=== PATIENT | female | born 1950 | race Two or more races ===

== ENCOUNTER 2016-06-03 12:58 | Emergency (ER) | payer OTHER ==
[~2016-06-03] VITALS: Ht 162.6 cm; Wt 86.2 kg
--- NOTE | 2016-06-03 13:10 | Emergency Room Report ---
History of Present Illness General Chief Complaint: Dizziness Source: Patient, EMS (SANCHEZ GARIBAY M.D.) Present Illness HPI 66 YOM BIBEMS from home for "dizziness" and "Weakness." Elevated glucose at home, ~300. Patient just moaning with eyes closed, not providing additional info. History of DM, but unknown other medical problems. No family members bedside. No other medical info from patient. (SANCHEZ GARIBAY M.D.) Allergies: Coded Allergies: No Known Allergies (Unverified , 06/03/16) Patient History Past Medical History: DM Past Surgical History: unable to obtain Pertinent Family History: unable to obtain Social History: Denies: alcohol use, drug use, smoking Now: No Immunizations: UTD Reviewed Nursing Documentation: PMH: Agreed, PSxH: Agreed (SANCHEZ GARIBAY M.D.) Nursing Documentation-PMH Hx Cardiac Problems: No Hx Hypertension: Yes Hx Pacemaker: No Hx Asthma: No Hx COPD: No Hx Diabetes: Yes Hx Cancer: No Hx Gastrointestinal Problems: No Hx Dialysis: No History Of Psychiatric Problem: No Hx Neurological Problems: No Hx Cerebrovascular Accident: No Hx Seizures: No (SANCHEZ GARIBAY M.D.) Review of Systems All Other Systems: limited - AMS (SANCHEZ GARIBAY M.D.) Physical Exam Vital Signs Date Time Temp Pulse Resp B/P Pulse Ox O2 Delivery O2 Flow Rate FiO2 06/03/16 12:54 98.1 96 16 160/100 99 Room Air Sp02 EP Interpretation: reviewed, abnormal General Appearance: normal inspection, alert, non-toxic, mild distress, other - eyes closed, moaning Head: normocephalic, atraumatic Eyes: bilateral eye EOMI, bilateral eye PERRL ENT: normal ENT inspection, hearing grossly normal, normal voice Neck: normal inspection, full range of motion, supple, no bony tend Respiratory: normal inspection, lungs clear, normal breath sounds, no respiratory distress, no retraction, no wheezing Cardiovascular #1: regular rate, rhythm, no edema Gastrointestinal: normal inspection, normal bowel sounds, non tender, soft, no guarding, no hernia Genitourinary: no CVA tenderness Musculoskeletal: normal inspection, back normal, normal range of motion, Jerry' s Sign negative Neurologic: normal inspection, alert, oriented x3, responsive, medical affairs leader III-XII nml as tested, speech normal Psychiatric: normal inspection, judgement/insight normal, mood/affect normal Skin: normal inspection, normal color, no rash (SANCHEZ GARIBAY M.D.) Procedures Critical Care Time Critical Care Time CC time 35 minutes Care for a 66 YO M with known DM presents with AMS Elevated BP DDx includes CVA, SAH, ACS, infection, metabolic abnormality, toxic ingestion, polysubstance abuse Patient is disoriented, no obvious sign of trauma. Comprehensive physical exam completed, atraumatic. Unreliable history from patient. Labs include toxicology and chem panel, CT head, EKG 12 lead and constant cardiac rhythm strip monitoring, IV established. Airway adequately maintained by patient upon arrival. EKG reveals NSR without QRS abnormalities. Physician spent 35 minutes of direct critical care time monitoring patient's respiratory, cardiac and neurological status, reassessment, review of imaging, labs and discussion with attending hospitalist. Does not include procedures (SANCHEZ GARIBAY M.D.) Medical Decision Making Medicare Attestation I Sanchez Garibay MD hereby attest that the medical record entry for date of service, 02/18/16 accurately reflects signatures/notations that I made in my capacity as MD when I treated/diagnosed the above listed Medicare beneficiary. I attest that this information is true, accurate and complete to the best of my knowledge. I understand that any falsification, omission, or concealment of material fact may subject me to administrative, civil, or criminal liability. This patient warrants hospital admission for extreme of age and has a condition that cannot be treated as outpatient. (SANCHEZ GARIBAY M.D.) Diagnostic Impression: Primary Impression: Altered mental status Qualified Codes: R41.82 - Altered mental status, unspecified Additional Impression: Dizziness ER Course Elevated BP. Afebrile. DDx hyperglycemia/DKA, SAH, metabolic enceph, ACS PLAN CT head Labs, ABG, IVF, insulin Likely admission Endorsed to Dr Cloud at 2pm to followup CT head imaging, labs and determine appropriate management/disposition (SANCHEZ GARIBAY M.D.) ER Course The patient was discussed with Dr. Azar Lamb from patient's HMO who agreed to accept patient in transfer to [facility]. The patient was given aspirin do to a recent CVA. Labs Test 06/03/16 13:20 06/03/16 13:30 06/03/16 13:40 06/03/16 13:49 White Blood Count 8.8 K/UL (4.8-10.8) Red Blood Count 5.68 M/UL (4.20-5.40) Hemoglobin 15.9 G/DL (12.0-16.0) Hematocrit 48.4 % (37.0-47.0) Mean Corpuscular Volume 85 FL (80-99) Mean Corpuscular Hemoglobin 28.1 PG (27.0-31.0) Mean Corpuscular Hemoglobin Concent 33.0 G/DL (32.0-36.0) Red Cell Distribution Width 11.7 % (11.6-14.8) Platelet Count 187 K/UL (150-450) Mean Platelet Volume 8.2 FL (6.5-10.1) Neutrophils (%) (Auto) 62.8 % (45.0-75.0) Lymphocytes (%) (Auto) 29.2 % (20.0-45.0) Monocytes (%) (Auto) 6.9 % (1.0-10.0) Eosinophils (%) (Auto) 0.5 % (0.0-3.0) Basophils (%) (Auto) 0.6 % (0.0-2.0) Sodium Level 137 mEQ/L (135-145) Potassium Level 4.0 mEQ/L (3.4-4.9) Chloride Level 97 mEQ/L (98-107) Carbon Dioxide Level 23 mEQ/L (20-30) Anion Gap 17 (5-15) Blood Urea Nitrogen 16 mg/dL (7-23) Creatinine 0.9 mg/dL (0.5-0.9) Estimat Glomerular Filtration Rate > 60 mL/min (>60) Glucose Level 260 mg/dL (74-106) Calcium Level 9.7 mg/dL (8.6-10.2) Magnesium Level 2.2 mg/dL (1.7-2.5) Total Bilirubin 0.6 mg/dL (0.0-1.2) Aspartate Amino Transf (AST/SGOT) 30 U/L (5-40) Alanine Aminotransferase (ALT/SGPT) 27 U/L (3-33) Alkaline Phosphatase 103 U/L (35-104) Total Protein 8.6 g/dL (6.6-8.7) Albumin 4.5 g/dL (3.5-5.2) Globulin 4.1 g/dL Albumin/Globulin Ratio 1.0 (1.0-2.7) Acetone Level Negative (NEGATIVE) Urine Color Pale yellow Urine Appearance Clear Urine pH 8 (4.5-8.0) Urine Specific [place] 1.010 (1.005-1.035) Urine Protein Negative (NEGATIVE) Urine Glucose (UA) 4+ (NEGATIVE) Urine Ketones Negative (NEGATIVE) Urine Occult Blood Negative (NEGATIVE) Urine Nitrite Negative (NEGATIVE) Urine Bilirubin Negative (NEGATIVE) Urine Urobilinogen Normal MG/DL (0.0-1.0) Urine Leukocyte Esterase Negative (NEGATIVE) Urine Opiates Screen Negative (NEGATIVE) Urine Barbiturates Screen Negative (NEGATIVE) Phencyclidine (PCP) Screen Negative (NEGATIVE) Urine Amphetamines Screen Negative (NEGATIVE) Urine Benzodiazepines Screen Negative (NEGATIVE) Urine Cocaine Screen Negative (NEGATIVE) Urine Marijuana (THC) Screen Positive (NEGATIVE) Arterial Blood pH 7.390 (7.350-7.450) Arterial Blood Partial Pressure CO2 45.5 mmHg (35.0-45.0) Arterial Blood Partial Pressure O2 68.6 mmHg (75.0-100.0) Arterial Blood HCO3 27.5 mmol/L (22.0-26.0) Arterial Blood Oxygen Saturation 93.9 % (92.0-98.0) Arterial Blood Base Excess 2.1 [place] Test Positive Troponin I < 0.30 ng/mL (<=0.30) Test 06/03/16 14:45 (Raphael Cloud) EKG Diagnostic Results Rate: normal Rhythm: NSR ST Segments: no acute changes ASA given to the pt in ED: No (SANCHEZ GARIBAY M.D.) Rhythm Strip Diag. Results EP Interpretation: yes Rate: 68 Rhythm: NSR, no PVC's, no ectopy (SANCHEZ GARIBAY M.D.) Last Vital Signs Date Time Temp Pulse Resp B/P Pulse Ox O2 Delivery O2 Flow Rate FiO2 06/03/16 12:54 98.1 96 16 160/100 99 Room Air Status: improved (SANCHEZ GARIBAY M.D.) Status: unchanged (Raphael Cloud) Disposition: ADMITTED INPATIENT Condition: Serious SANCHEZ GARIBAY M.D. Jun 03, 2016 13:10 Raphael Cloud Jun 03, 2016 15:00
[2016-06-03 13:30] LABS: BASOPHILS % (AUTO) 0.6 % (0.0-2.0); EOSINOPHILS % (AUTO) 0.5 % (0.0-3.0); LYMPHOCYTES % (AUTO) 29.2 % (20.0-45.0); MEAN CORPUSCULAR HEMOGLOBIN 28.1 PG (27.0-31.0); MEAN CORPUSCULAR VOLUME 85 FL (80-99); MEAN PLATELET VOLUME 8.2 FL (6.5-10.1); MONOCYTES % (AUTO) 6.9 % (1.0-10.0); NEUTROPHILS % (AUTO) 62.8 % (45.0-75.0); PLATELET COUNT 187 K/UL (150-450); RED BLOOD COUNT 5.68 M/UL (4.20-5.40); RED CELL DISTRIBUTION WIDTH 11.7 % (11.6-14.8); WHITE BLOOD COUNT 8.8 K/UL (4.8-10.8)
[2016-06-03 13:41] VITALS: BP 160/100
[2016-06-03 13:43] LABS: ALANINE AMINOTRANSFERASE 27 U/L (3-33); ANION GAP 17 (5-15); ASPARTATE AMINO TRANSFERASE 30 U/L (5-40); CALCIUM 9.7 mg/dL (8.6-10.2); CARBON DIOXIDE 23 mEQ/L (20-30); CHLORIDE 97 mEQ/L (98-107); CREATININE 0.9 mg/dL (0.5-0.9); GLOMERULAR FILTRATION RATE > 60 mL/min (>60); HEMOLYSIS 34; MAGNESIUM 2.2 mg/dL (1.7-2.5); SODIUM 137 mEQ/L (135-145); TOTAL PROTEIN 8.6 g/dL (6.6-8.7)
[2016-06-03 13:48] LABS: ABG ALLEN TEST POSITIVE; ABG BASE EXCESS 2.1; ABG PCO2 45.5 mmHg (35.0-45.0)
[2016-06-03] MEDS ORDERED: TRADJENTA5 MG PO (13:57)
[2016-06-03] MEDS ORDERED: AMLODIPINE BESYL5 MG ORAL (13:58)
[2016-06-03] MEDS ORDERED: LOSARTAN POTAS100 MG ORAL (13:59)
[2016-06-03] MEDS ORDERED: LANTUS SOL100 UNIT/1 SUBQ (14:01)
[2016-06-03] MEDS ORDERED: HUMALOG KW200 UNIT/1 SQ (14:03)
[2016-06-03] MEDS ORDERED: BENAZEPRIL HCL40 MG ORAL (14:04)
[2016-06-03] MEDS ORDERED: OXYBUTYNIN CHLOR5 M1 ORAL (14:05)
[2016-06-03] MEDS ORDERED: PLAVIX75 MG ORAL (14:07)
[2016-06-03 14:22] LABS: APPEARANCE,URINE CLEAR; KETONES,URINE NEGATIVE (NEGATIVE); LEUKOCYTE ESTERASE ,URINE NEGATIVE (NEGATIVE); NITRITE,URINE NEGATIVE (NEGATIVE); PH,URINE 8 (4.5-8.0); PROTEIN,URINE NEGATIVE (NEGATIVE); UROBILINOGEN,URINE NORMAL MG/DL (0.0-1.0)
[2016-06-03 14:28] VITALS: BP 146/66
[2016-06-03] MEDS ORDERED: Aspirin Baby 81mg ORAL ONE (14:30)
[2016-06-03 14:38] LABS: TROPONIN I < 0.30 ng/mL (<=0.30)
[2016-06-03] MEDS ORDERED: levETIRAcetam 500mg vial IV ONE (14:39)
[2016-06-03] MEDS ORDERED: levETIRAcetam 500 MG in D5W 110 ML IVPB ONE (14:45)
[2016-06-03 15:30] VITALS: BP 141/67
[2016-06-03 16:45] VITALS: BP 114/45
[2016-06-03 17:17] VITALS: BP 114/45
--- NOTE | 2016-06-04 08:26 | Diagnostic Imaging Report ---
Indication: Dyspnea Technique: One view of the chest Comparison: none Findings: Lungs and pleural spaces are clear. Heart size is upper limits of normal. Aorta is tortuous and calcified Impression: No acute process
--- NOTE | 2016-06-04 08:26 | Diagnostic Imaging Report ---
Indications: Altered mental status Technique: Spiral acquisitions obtained through the brain. Angled axial and coronal 5 x 5 mm slices were reconstructed. Total dose length product 1351 mGycm. CTDI vol(s) is mGy Comparison: None Findings: There is a focal area of cytotoxic edema in the posterior inferior right frontal lobe. This manifests minimal local mass effect, with attenuation of the adjacent sulci. There is a punctate focal area of cortical hyperattenuation in and adjacent gyrus which is evident on image 12 of series 4, the coronal images, only questionably at all visible on the axial images which if real could represent a tiny focus of hemorrhage. No other associated hemorrhage demonstrated. No midline shift There is mild age-related enlargement of the ventricles and extra-axial CSF spaces. There is a small focal area of encephalomalacia in the right posterior parietal lobe, consistent with a small old cortical infarct. There is minimal periventricular deep white matter chronic ischemic change noted. Normal randall-white differentiation otherwise. Intact calvarium. There is minimal ethmoid sinus mucosal disease. Impression: Area of cytotoxic edema in the right posterior frontal region. Suspect that this represents a subacute to late subacute infarct. There is questionably a tiny peripheral focus of associated hemorrhage. MRI may be useful to clarify Old right posterior parietal infarct Other chronic and age-related changes, as described Critical value findings discussed by phone with Dr. Cloud in the emergency room at the time of interpretation The CT scanner at [facility] is accredited by the [employer] and the scans are performed using protocols designed to limit radiation exposure to as low as reasonably achievable to attain images of sufficient resolution adequate for diagnostic evaluation.
--- NOTE | 2016-06-08 18:28 | Cardiology Report ---
APPROVED REPORT EKG Measurement Heart [id number] Normal sinus rhythm Low voltage QRS Borderline ECG
== END 2016-06-03 17:28 | disposition short-term general hospital (02) ==
LOC: EDBD 12:58 → EMR 13:15 → EDBEDREQ 16:19 → EMR 17:28
DX: R41.82 Altered mental status, unspecified (principal); R42 Dizziness and giddiness; E11.9 Type 2 diabetes mellitus without complications; I10 Essential (primary) hypertension
CPT/HCPCS: 36415; 36600; 70450; 71010; 80053; 80300; 81003; 82009; 82140; 82803; 83735; 84484; 85025; 93005; 99291; J1815; J1953